=== PATIENT | male | born 1955 | race African-American/Black ===

== ENCOUNTER 2019-07-04 08:28 | Emergency (ER) | payer SELFPAY ==
[~2019-07-04] VITALS: Ht 172.7 cm; Wt 81.6 kg
--- NOTE | 2019-07-04 08:27 | NUR ---
ED Nurse Note: Pt arrived with RA 61 due to ETOH, pt was found on the floor with a bottle of alcohol next to him. pt denies pain at this time. pt states "im fine let me sleep" pt placed in room, no acute distress noted. ERMD bedside assessed pt. blood glucose of 116. ordered to let pt sleep and reassess in an hr.
--- NOTE | 2019-07-04 08:28 | NUR ---
ED Nurse Note: Pt shows no respiratory symptoms.
[2019-07-04 08:31] VITALS: BP_SYST 135; BP_SYST 145; BP_DIAS 69; BP_DIAS 89
--- NOTE | 2019-07-04 08:36 | NUR ---
ED Nurse Note: Provided pt a meal. Pt is currently eating sandwhich.
--- NOTE | 2019-07-04 08:38 | Emergency Room Report ---
History of Present Illness General Chief Complaint: Alcohol Intoxication Source: EMS Present Illness HPI 70-year-old male unknown medical history presents with acute alcohol intoxication 911 was called due to patient lying in the street sleeping with an empty bottle of vodka patient is currently intoxicated aggravated by alcohol alleviated by not taking alcohol severity is mild, constant patient presents for evaluation Allergies: Coded Allergies: UNABLE TO ASSESS (Unverified , 07/04/19) COVID-19 Screening Contact w/high risk pt: Yes Recent Travel to affected area: No Experienced COVID-19 symptoms?: No COVID-19 Testing performed 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 Patient History Limited by: medical condition - Currently intoxicated Past Medical History: see triage record Social History: Reports: alcohol use Reviewed Nursing Documentation: PMH: Agreed; PSxH: Agreed Nursing Documentation-PMH Past Medical History: Deferred Review of Systems All Other Systems: limited - Currently intoxicated Physical Exam Vital Signs Date Time Temp Pulse Resp B/P (MAP) Pulse Ox O2 Delivery O2 Flow Rate FiO2 07/04/19 08:28 97.7 89 16 145/89 (107) 96 Room Air General Appearance: well appearing, no apparent distress Head: normocephalic, atraumatic Eyes: bilateral eye PERRL, bilateral eye EOMI ENT: hearing grossly normal, normal voice Neck: full range of motion, supple Respiratory: no respiratory distress, speaking full sentences Neurologic: alert, responsive Psychiatric: mood/affect normal Skin: no rash Medical Decision Making Diagnostic Impression: Primary Impression: Acute alcoholic intoxication Qualified Codes: F10.920 - Alcohol use, unspecified with intoxication, uncomplicated ER Course 70-year-old male presents with acute alcohol intoxication will outpatient to sober prior to discharge Reevaluation 1:54 AM patient with a stable gait patient is sober discharge home with return precautions follow-up with PCP Last Vital Signs Date Time Temp Pulse Resp B/P (MAP) Pulse Ox O2 Delivery O2 Flow Rate FiO2 07/04/19 08:31 84 16 Room Air 07/04/19 08:31 97.7 145/89 96 Disposition: HOME, SELF-CARE Condition: Stable Scripts Unable to Obtain Active Prescriptions or Reported Meds Referrals: [facility] Patient Instructions: Alcohol Intoxication, [id number], Alcohol Use Disorder Additional Instructions: The patient was provided with discharge instructions, notified to follow-up with a primary care doctor and or specialist in the next 24-48 hours, and to return to the ED if they have worsening of their symptoms. Please note that this report is being documented using [employer] technology. This can lead to erroneous entry secondary to incorrect interpretation by the dictating instrument. Elijah Rust MD July 04, 2019 08:38
--- NOTE | 2019-07-04 09:30 | NUR ---
ED Nurse Note: Pt completed meal. pt is current sleeping in bed. no further orders at this time.
[2019-07-04 10:30] VITALS: BP 134/72
--- NOTE | 2019-07-04 11:04 | NUR ---
ED Nurse Note: Pt is resting in bed, pt offered additional meal but refused.
--- NOTE | 2019-07-04 12:01 | NUR ---
ER DISCHARGE NOTE: Patient is cleared to be discharged per ERMD, pt is aox4, on room air, with stable vital signs. pt was given dc instructions but refused to sign, pt was able to verbalize understanding asked to throw discharge papers away, pt id band removed. pt is able to ambulate with steady gait. pt took all belongings. pt was given meal.
[2019-07-04 12:02] VITALS: BP 129/73
== END 2019-07-04 12:00 | disposition home or self-care (01) ==
LOC: EDBD 08:28 → EMR 08:47 → EDBD 08:47 → EMR 12:00
DX: F10.129 Alcohol abuse with intoxication, unspecified (principal)
CPT/HCPCS: 99282